=== PATIENT | male | born 1975 | race African-American/Black ===

== ENCOUNTER → 2018-04-10 16:30 | Outpatient (CLI) | payer BC, SELFPAY | PROVIDERS: Visit Provider Dermatology | DX: B96.89 Other specified bacterial agents as the cause of diseases classified elsewhere (principal); L30.1 Dyshidrosis [pompholyx] | CPT/HCPCS: 87070; 87077; 87186; 87205 ==

== ENCOUNTER 2018-12-26 22:43 | Emergency (ER) | payer BC, SELFPAY ==
[2018-12-26 22:44] VITALS: BP 166/105; PULSE 98; RESP 18; TEMP 36.7; O2SAT 98; BMI 30.4
--- NOTE | 2018-12-26 23:11 | ED.VISSUMM ---
- ER Visit Summary Date of Service: 12/26/18 Chief Complaint: Wound check History of Present Illness: The patient is a 43 M X reevaluation wound check bilateral feet. Progressive wounds over 2 weeks. No diabetes. Works on his feet, a lot of sweating, excoriations. Has had athlete's foot in the past most recently a year ago where significant. He followed up with Dr. Robel Juarez podiatry for wound care. He states his appointment in 1 week at the earliest. Does not use any ursa-akm-[id number] treatment with medicines. Has blown dry after showers, has change socks, has used Hibiclens and which olga. Antifungals has worked. Physical Examination: General: Alert and oriented ?3, no acute distress HEENT: Normocephalic, atraumatic. Moist mucosa membranes Neck: supple, nontender. Cardiovascular: Regular rate and rhythm, no murmurs Respiratory: Normal breath sounds, symmetric, no distress Abdomen: Soft, nontender, nondistended Extremities: Nontender, no edema, pulses intact ?4 Neuro: no focal neurological deficits. Skin: Excoriations bilateral feet first to third webspace, left foot, excoriation plantar aspect fourth and fifth distal metatarsal. There is no drainage or erythema, there is no streaking. No bleeding. Test Results: [] Emergency Department Course and Treatment: Exam concerns for tinea of the skin. Discussed continued wound care. Motrin for inflammation control, started on nystatin topical. 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 All questions were answered. Treatment Plan: [] Disposition: Discharge Impression: Tinea bilateral feet This note was generated with [employer] dictation software. It may contain incorrect words, spelling, and punctuation that were not noted in review of the chart prior to signing ED Disposition - Plan for ED Patient: Disposition: Home or Assisted Living Diagnosis: Tinea pedis of both feet Instructions: ED Infec Skin Fungal Tinea Prescriptions: Ibuprofen 600 mg PO Q6H PRN PRN #30 tablet PRN Reason: Pain Nystatin 1 applic TP BID #30 oint...g. Referrals: [facility] Doctor,Out of [NON-STAFF] - Additional Instructions: Follow up with Dr. Juarez.
[2018-12-26] MEDS: Ibuprofen 600 MG Tablet PO (23:12)
--- NOTE | 2018-12-26 23:16 | ED.DCSUM_ITS ---
- ER Visit Summary Date of Service: 12/26/18 Chief Complaint: Wound check History of Present Illness: The patient is a 43 M X reevaluation wound check bilateral feet. Progressive wounds over 2 weeks. No diabetes. Works on his feet, a lot of sweating, excoriations. Has had athlete's foot in the past most recently a year ago where significant. He followed up with Dr. Robel Juarez podiatry for wound care. He states his appointment in 1 week at the earliest. Does not use any [id number]-[id number] treatment with medicines. Has blown dry after showers, has change socks, has used Hibiclens and which olga. Antifungals has worked. Physical Examination: General: Alert and oriented ?3, no acute distress HEENT: Normocephalic, atraumatic. Moist mucosa membranes Neck: supple, nontender. Cardiovascular: Regular rate and rhythm, no murmurs Respiratory: Normal breath sounds, symmetric, no distress Abdomen: Soft, nontender, nondistended Extremities: Nontender, no edema, pulses intact ?4 Neuro: no focal neurological deficits. Skin: Excoriations bilateral feet first to third webspace, left foot, excoriation plantar aspect fourth and fifth distal metatarsal. There is no drainage or erythema, there is no streaking. No bleeding. Test Results: [] Emergency Department Course and Treatment: Exam concerns for tinea of the skin. Discussed continued wound care. Motrin for inflammation control, started on nystatin topical. 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 All questions were answered. Treatment Plan: [] Disposition: Discharge Impression: Tinea bilateral feet This note was generated with [employer] dictation software. It may contain incorrect words, spelling, and punctuation that were not noted in review of the chart p rior to signing ED Disposition - Plan for ED Patient: Disposition: Home or Assisted Living Diagnosis: Tinea pedis of both feet Instructions: ED Infec Skin Fungal Tinea Prescriptions: Ibuprofen 600 mg PO Q6H PRN PRN #30 tablet PRN Reason: Pain Nystatin 1 applic TP BID #30 oint...g. Referrals: [facility] Doctor,Out of [NON-STAFF] - Additional Instructions: Follow up with Dr. Juarez.
[2018-12-26] MEDS: Nystatin Ointment 1 APPLIC TOPICAL (23:30)
== END 2018-12-26 23:31 | disposition home or self-care (01) ==
PROVIDERS: Emergency Provider Emergency Medicine; Family Provider Family Medicine; PCP Family Medicine
DX: B35.3 Tinea pedis (principal); I10 Essential (primary) hypertension; Z72.0 Tobacco use
CPT/HCPCS: 99283

== ENCOUNTER → 2025-03-14 | Outpatient (CLI) | payer BC, SELFPAY ==
--- NOTE | 2025-03-14 14:46 | CT_ITS ---
PROCEDURE: CTA ABD/PELVIS W/WO CONTRAST 03/14/2025 REASON FOR EXAM: SACCULAR AORTIC ANEURYSM TECHNIQUE: CTA imaging of the abdomen and pelvis with intravenous contrast. Multiplanar and multisequence images were obtained. 3D post processing was performed CONTRAST: 85 mL Isovue 370 One or more dose reduction techniques were used (e.g., Automated exposure control, adjustment of the mA and/or kV according to patient size, use of iterative reconstruction technique). RADIATION DOSE SUMMARY: CTDlvol: 35.6 mGy DLP: 1032 mGycm COMPARISON: None FINDINGS: Aorta: Saccular outpouching of the infrarenal abdominal aorta measuring 5 mm in both width and depth (series 2, image 84), just inferior to the takeoff of the inferior mesenteric artery. Moderate calcified and noncalcified atherosclerosis throughout the aorta and its branches. No dissection flap. Iliac Arteries: Scattered atherosclerotic plaque. No aneurysm or significant stenosis. Celiac: Unremarkable SMA: Unremarkable JULIA : Unremarkable Right Renal: Unremarkable Left Renal: Unremarkable Other Findings: Cardiomegaly with multivessel coronary calcifications. Left renal cyst. Hyperdensity in a calyx at the lower pole of the left kidney likely represents intravascular or excreted contrast, though a nonobstructing stone could appear similar. Colonic diverticulosis without evidence of acute diverticulitis. Degenerative changes of the spine, sacroiliac joints, and hips. CT/CTA Abd/Pelvis W/WO Contrast IMPRESSION: Saccular outpouching in the abdominal aorta measuring 5 mm in width and depth. Recommend Vascular Surgery referral if not already performed, and consider continued imaging surveillance. Reading Location: [facility]
== END | disposition home or self-care (01) ==
LOC: CT 14:42
PROVIDERS: PCP Physician Assistant; Referring Provider Physician Assistant; Visit Provider Physician Assistant
DX: I71.9 Aortic aneurysm of unspecified site, without rupture (principal)
CPT/HCPCS: 74174; Q9967